=== PATIENT | female | born 1980 | race Hispanic/Latino ===

== ENCOUNTER 2022-12-28 09:47 | Emergency (ER) | payer OTHER ==
[~2022-12-28] VITALS: Ht 165.1 cm; Wt 85.3 kg
[2022-12-28 09:49] VITALS: BP 99/65
[2022-12-28] MEDS ORDERED: BENZONATATE 100 MG CAPSULE PO ONE (10:00)
[2022-12-28] MEDS ORDERED: MONT-39 PO (11:31)
[2022-12-28] MEDS ORDERED: PRED50TA2 PO (11:31)
[2022-12-28] MEDS ORDERED: BENZ200C53 PO (11:31)
== END 2022-12-28 11:41 | disposition home or self-care (01) ==
LOC: EDH 09:47
DX: J06.9 Acute upper respiratory infection, unspecified (principal); I10 Essential (primary) hypertension; Z20.822 Contact with and (suspected) exposure to COVID-19
CPT/HCPCS: 99284; 71045; 87635; 87804 ×2; 81025; C9803